=== PATIENT | female | born 1960 | race Caucasian/White ===

== ENCOUNTER → 2024-10-26 07:57 | Outpatient (REF) | payer BC, SELFPAY | LOC: HWRAD 07:57 | PROVIDERS: ATTENDING PHYSICIAN Physician Assistant Medical | DX: K21.9 Gastro-esophageal reflux disease without esophagitis (principal) | CPT/HCPCS: 76700 ==

== ENCOUNTER 2025-09-01 14:18 | Emergency (ER) | payer OTHER, SELFPAY ==
[2025-09-01 14:22] VITALS: BP 193/131
[2025-09-01 14:33] VITALS: BP 153/100
--- NOTE | 2025-09-01 15:01 | ED.MUSCINJ ---
HPI-Injury
<Silvestre Delvalle, DO - Last Filed: 09/01/25 15:05>
General
Chief Complaint: Fall
Time Seen by Provider: 09/01/25 14:36
<Floyd Cherry DO, Resident - Last Filed: 09/01/25 16:21>
General
Source: patient
Exam Limitations: none
Nursing documentation reviewed up to this point in time: agreed with
History of Present Illness-Injury
Is this injury a work related problem?: No
Is pt an associate of [facility]?: No
Initial Injury comments:
Beverley Lamb is a 65 year old right handed female presenting after a slip on ice and FOOSH. Patient fell onto her left outstretched left hand one hour prior to arrival. She denies chest pain, shortness of breath, dizziness, or syncope prior to this
fall. She denies hitting her head or LOC. Patient experienced immediate pain to the left wrist. No pain in the left elbow. She also endorses moderate swelling, and no bruising. No loss of sensation or change in color of the affected extremity. She
immediately placed her hand in an ice pack and came to the ED. She did not take OTC pain meds at home.
Past History
<Floyd Cherry DO, Resident - Last Filed: 09/01/25 16:21>
Past History
ED Past Medical History: Other (Multiple sclerosis, hypertension)
ED Past Surgical History: Other (D&C, tonsillectomy, right breast lumpectomy which was benign)
Social History
Tobacco: Non-smoker
Review of Systems
<Floyd Cherry DO, Resident - Last Filed: 09/01/25 16:21>
Review of Systems
Allergies reviewed?: Yes
All Other Systems: ROS reviewed and negative except as documented in HPI and ROS
Phy Exam
<Floyd Cherry DO, Resident - Last Filed: 09/01/25 16:21>
Physical Exam
Physical Exam:
General: Pleasant, in no acute distress, in moderate pain
HEENT: normocephalic, atraumatic
MSK: Moderate swelling of the left wrist. Moderate tenderness to palpation of the left wrist particularly near the radial head. There is no tenderness of the bones of the hand or digits. There is no anatomic snuff box tenderness. There is no
ecchymosis. Sensation is intact distal to the site of injury. Radial pulse is 2+ in the left wrist. ROM is limited in the left wrist secondary to swelling and pain. Normal ROM of the left elbow without pain.
Neuro: Awake, alert
Psych: Calm, normal affect
Scores
<Floyd Cherry DO, Resident - Last Filed: 09/01/25 16:21>
Heart Failure Risk
Heart Failure Risk Score: Not Applicable
Heart Score for Chest Pain Patients
STEMI patient?: Not applicable
Withdrawal Assessment of Alcohol
Withdrawal Assessment Completed?: Not applicable
Injury Course
<Silvestre Delvalle, DO - Last Filed: 09/01/25 15:05>
Orders/Labs/Results
Orders:
Orders
09/01/25 15:00
Ibuprofen [Motrin] 600 mg PO NOW STA
Wrist, Left 3 Views CR [CR Wrist - Left Min 3 Views] Urgent
Comment:
Reason For Exam: FOOSH
<Floyd Cherry DO, Resident - Last Filed: 09/01/25 16:21>
Orders/Labs/Results
Orders:
Orders
09/01/25 15:00
Ibuprofen [Motrin] 600 mg PO NOW STA
Wrist, Left 3 Views CR [CR Wrist - Left Min 3 Views] Urgent
Comment:
Reason For Exam: FOOSH
<Floyd Cherry DO, Resident - Last Filed: 09/01/25 16:21>
MDM/Problems Addressed
Differential Diagnosis Includes:
Radial Fracture, Scaphoid Fracture s/p FOOSH, Ligamentous Injury, Soft Tissue Swelling
MDM/Problems Addressed:
65F presenting after FOOSH injury onto nondominant hand after slipping on ice. Physical exam is significant for swelling and decreased ROM of the left wrist secondary to pain and swelling. Otherwise neurovascularly intact. Will check and XR of the L
wrist. Suspect radial fracture. Motrin given for pain control in the interim.
XR shows distal radius fracture; will apply volar splint. Recommended Motrin 600mg q6h for pain control. Close outpatient follow up with orthopedics for further evaluation. Number provided for [facility].
Left arm put in sugartong splint and sling. Post splinting exam, full ROM of fingers, and neurovascularly intact.
<Floyd Cherry DO, Resident - Last Filed: 09/01/25 16:21>
*Pulse Oximetry
SaO2: 98
Oxygen Mode of Delivery: Room air
Patient hypoxic: no
*Critical Care Note
Total Time (30-74mins, 75-104mins- exclusive of procedures): Not Applicable
ED Attending Note
<Silvestre Delvalle DO - Last Filed: 09/01/25 15:05>
ED Attending Note
Patient seen and examined by attending physician: Yes
I performed a history and physical exam of patient and discussed management with resident, I reviewed resident's note and agree with documented findings and plan of care.: Yes
ED Attending Note:
I have seen and evaluated the patient with a [id number] encounter. I have spoken to the resident and involved in the medical history, the physical exam, medical decision making.
Evaluation and management service: agree unless noted differently below.
Results interpretation: agree unless noted differently below.
Focused HPI: 65-year-old female presenting with left wrist injury after falling backwards on the ice.
Physical exam: Swelling and tenderness noted to distal left radius. Distal extremity otherwise neurovascularly intact. No pain to forearm or elbow
Medical Decision Making: Clinically, patient has a distal radius fracture. Will obtain x-ray. Otherwise discussed splint and outpatient follow-up with hand
<Floyd Cherry DO, Resident - Last Filed: 09/01/25 16:21>
-
Portions of this chart may have been created with voice recognition software.� Occasional wrong word or��sound alike� substitutions may have occurred due to the inherent limitations of voice recognition software.
Discharge Plan
Departure
Prescriptions:
No Action
losartan 50 MG tablet
100 mg PO DAILY
ciprofloxacin HCl 500 MG tablet
500 mg PO Q12
Referrals:
Moreno Churchill MD [Active, Orthopedics]
Jonathan Wakefield MD [Family Provider, Family Practice]
Activity Restrictions/Additional Instructions:
Follow up with the hand specialist early this week. The phone number was provided.
You may use Motrin 600 mg every 6 hours for pain control.
Otherwise utilize rest, ice, and elevation of the affected arm for further pain control and reduction of swelling.
Interventions
Interventions:
*General Assessment Last Done: 09/01/25 14:21
*Neglect/Abuse Screening Last Done: 09/01/25 14:21
*ED COVID-19 Vaccine History Last Done: 09/01/25 14:21
*ED Influenza Vaccine History Last Done: 09/01/25 14:21
[facility] Fall Risk Assessment Tool Last Done: 09/01/25 14:31
*Risk Screen - Suicide (C-SSRS) Last Done: 09/01/25 14:21
ED-Musculoskeletal Assessment Last Done: 09/01/25 14:31
ED- Neurological Assessment Last Done: 09/01/25 14:31
ED-Skin Assessment Last Done: 09/01/25 14:32
Discharge Date and Time
Print Language: COLOMBIAN
[2025-09-01 15:13] VITALS: BMI 36.3
[2025-09-01] MEDS: MOTRIN 600 MG PO (15:14)
[2025-09-01 16:36] VITALS: BP 144/92
== END 2025-09-01 16:39 | disposition home or self-care (01) ==
LOC: EMR 14:18
PROVIDERS: EMERGENCY PHYSICIAN Student in an Organized Health Care Education/Training Program; FAMILY PHYSICIAN Family Medicine
DX: S52.502A Unspecified fracture of the lower end of left radius, initial encounter for closed fracture (principal); W00.0XXA Fall on same level due to ice and snow, initial encounter
CPT/HCPCS: 99283; 29125; 73110